=== PATIENT | female | born 1975 | race Caucasian/White ===

== ENCOUNTER → 2018-06-28 | Outpatient (CLI) | payer OTHER ==
[~2018-06-28] MED LIST: IBUP200T64 PO
== END | disposition home or self-care (01) ==
LOC: CFH 12:10
PROVIDERS: ATTEND Nurse Practitioner Family
DX: Z12.31 Encounter for screening mammogram for malignant neoplasm of breast (principal)
CPT/HCPCS: 77067

== ENCOUNTER → 2018-07-19 | Outpatient (CLI) | payer OTHER | END | disposition home or self-care (01) | LOC: CFH 12:38 | PROVIDERS: ATTEND Nurse Practitioner Family | DX: N60.01 Solitary cyst of right breast (principal) | CPT/HCPCS: 76641; 77065; G0279 ==

== ENCOUNTER → 2020-02-14 | Outpatient (CLI) | payer OTHER | END | disposition home or self-care (01) | LOC: CFH 13:12 | PROVIDERS: ATTEND Nurse Practitioner Family | DX: Z12.31 Encounter for screening mammogram for malignant neoplasm of breast (principal); N64.89 Other specified disorders of breast | CPT/HCPCS: 77063; 77067 ==

== ENCOUNTER → 2020-07-11 | Outpatient (CLI) | payer OTHER | END | disposition home or self-care (01) | LOC: RAD 10:21 | PROVIDERS: ATTEND Nurse Practitioner Family | DX: R22.42 Localized swelling, mass and lump, left lower limb (principal) ==